=== PATIENT | male | born 1975 | race Caucasian/White ===

== ENCOUNTER 2020-07-22 14:49 | Emergency (ER) | payer OTHER, SELFPAY ==
[2020-07-22 14:53] VITALS: BP 176/99; PULSE 129; RESP 18; TEMP 37.5; O2SAT 98; BMI 34.2
--- NOTE | 2020-07-22 14:57 | XRR_ITS ---
PROCEDURE INFORMATION: Exam: XR Right Forearm Exam date and time: 07/22/2020 3:28 PM Age: 44 years old Clinical indication: Injury or trauma and condition or disease; Other: Not specified; Work related; Other: Arm fracture; Blunt trauma (contusions or hematomas); Arm, lower; Right; Injury date: 07/22/20 TECHNIQUE: Imaging protocol: XR Right forearm. Views: 2 views. COMPARISON: CR Elbow 3 views, RIGHT* [id number] 08/07/2018 5:52 PM FINDINGS: Bones/joints: Comminuted, displaced distal radial fracture without extension into the radiocarpal joint, lateral displacement of the distal fracture fragment. Minimally angulated and comminuted distal ulnar fracture in near anatomic alignment and position. No dislocation. Soft tissues: Soft tissue edema. XR/XR forearm RT 2V [id number] IMPRESSION: Comminuted, displaced distal radial fracture. Distal ulnar fracture.
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
[2020-07-22 15:00] VITALS: RESP 16
[2020-07-22] MEDS: ondansetron 2 mg/ML SDV 2 mL 4 MG IVP (15:00)
[2020-07-22] MEDS: morphine 4 mg/mL SDV 1 mL 6 MG IVP (15:00)
[2020-07-22 15:12] VITALS: RESP 15
[2020-07-22] MEDS: HYDROmorphone 1 mg/mL INJ 1 mL IVP ×2 (15:12→15:46)
--- NOTE | 2020-07-22 15:37 | DCPLANNER ---
manager online was asked to schedule a follow up appointment for patient with ortho. manager online called the ortho clinic, spoke with Pat, a follow up appointment was scheduled for Tuesday, July 23, 2020 at 8:[address] Falk. manager online gave patient the appointment information.
[2020-07-22 15:46] VITALS: RESP 16
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
[2020-07-22] MEDS: iohexol 300 mg/mL 100 mL Btl IV (16:35)
[2020-07-22 16:50] VITALS: BP 120/75; PULSE 60; RESP 14; O2SAT 98
--- NOTE | 2020-07-23 12:49 | DCPLANNER ---
Patient had an appointment scheduled for 07.23.20 with ortho - patient did attend appointment.
[2020-07-24 14:08] LABS: Coronavirus Lab Test PTC Positive
== END 2020-07-22 16:53 | disposition home or self-care (01) ==
PROVIDERS: Emergency Provider Family Medicine; PCP Family Medicine
DX: S52.331A Displaced oblique fracture of shaft of right radius, initial encounter for closed fracture (principal); S52.611A Displaced fracture of right ulna styloid process, initial encounter for closed fracture; Y35.91XA Legal intervention, means unspecified, law enforcement official injured, initial encounter; U07.1 COVID-19
CPT/HCPCS: 12345; 29125; 73090; 73201; 87635; 96374; 96375; 96376; 99282; 99283; J1170; J2270; J2405; Q9967

== ENCOUNTER 2020-07-23 11:37 | Day surgery (SDC) | payer OTHER, SELFPAY ==
[2020-07-23] VITALS (17 sets, daily range): BP systolic 144–199; BP diastolic 68–113; PULSE 108–134; RESP 14–32; TEMP 37–37.7; O2SAT 90–98; BMI 34.9
--- NOTE | 2020-07-23 | SCC_ITS ---
Procedure Done: ORIF Right radius non op tx of Right ulna 44.0 seconds of fluoroscopic guidance, for a cumulative dose of 0.78 mGy, was provided to Dr. Falk by the radiology department. C-arm images of the RIGHT wrist were saved for the patient's permanent record. [facility] [place]
--- NOTE | 2020-07-23 | XR_ITS ---
WS: [id number] Right wrist, 4 views C-arm fluoroscopy, 07/23/2020 Clinical Data: OR PICS Comparison: Right forearm, 07/22/2020. Findings: There is internal fixation of the comminuted distal right radial fracture with a ventral plate attach ed with multiple orthopedic screws. There are transverse screws at the midportion of the fracture sit e. No change in the distal right ulnar fracture is seen. XR/XR wrist RT 2V [id number] Impression: Internal fixation of comminuted right radial fracture.
[2020-07-23] MEDS: sodium chloride 0.9% 1,000 ML 30 ML IV (12:00)
[2020-07-23] MEDS: CELEcoxib 200 mg Capsule 400 MG PO (12:01)
[2020-07-23 12:38] LABS: Basophils % 0.3 %; Eosinophils # 0.1 10^3/uL (0.0-0.8); Eosinophils % 1.2 %; Hematocrit 39.8 % (42.0-52.0); Hemoglobin 13.3 g/dL (11.7-16.6); Lymphocytes # 2.5 10^3/uL (0.8-4.8); Lymphocytes % 33.8 %; Mean Corpuscular HGB Conc 33.4 g/dL (30.0-36.0); Mean Corpuscular Hemoglobin 27.3 pg (28.0-34.0); Mean Corpuscular Volume 81.7 fL (80-94); Mean Platelet Volume 11.9 fL (7.4-10.4); Monocytes % 13.7 %; Neutrophils % 50.7 %; Nucleated Red Blood Cells % 0 %; Platelet Count 191 10^3/cmm (130-400); Red Blood Count 4.87 10^6/uL (4.1-5.3); Red Cell Distribution Width 13.1 % (12.1-15.1); White Blood Count 7.3 10^3/uL (4.0-10.0)
[2020-07-23] MEDS: fentaNYL 50 mcg/mL INJ 2mL IVP ×4 (12:52→17:01)
--- NOTE | 2020-07-23 12:52 | W.PM.OPSUD ---
Surgery/Procedure H&P Update DATE OF PROCEDURE: July 23, 2020 DATE H&P PERFORMED: 07/23/20 H&P UPDATE INFORMATION: I have reviewed H&P completed within last 30 days, I have examined patient prior to procedure and No changes to prior documentation PREOP DIAGNOSIS: Next right radial shaft and ulnar fracture PLANNED PROCEDURE: Operation Date: 07/23/20 15:00 Proposed Procedures p ORIF shaft of radius fracture, right 62011 s52.301A(Right) - Brian Callahan DO
[2020-07-23 13:09] LABS: Alanine Aminotransferase 39 U/L (0-41); Alkaline Phosphatase 264 IU/L (40-130); Anion Gap 14.9 (5-19); Aspartate Amino Transferase 32 U/L (0-40); Blood Urea Nitrogen 11 mg/dL (6-20); Calcium 10.2 mg/dL (8.5-10.5); Carbon Dioxide 24 mmol/L (22-29); Chloride 100 mmol/L (98-107); Glomerular Filtration Rate 231.6 mL/min (90-130); Glucose 127 mg/dL (65-115); Osmolality Calculated 281 mOsm/kg (285-295); Potassium 3.9 mmol/L (3.5-5.1); Sodium 135 mmol/L (136-145); Total Bilirubin 1.4 mg/dL (0.15-1.2)
--- NOTE | 2020-07-23 13:26 | P.ANESASSM_ITS ---
Pre-Anesthetic Assessment Pre-Anesthetic Assessment: Height/Weight: Height 1.73 m Weight 104.326 kg Resp Pulse Ox 18 96 07/23/20 12:52 07/23/20 12:52 Preop Diagnosis: Next right radial shaft and ulnar fracture Proposed Procedure: Operation Date: 07/23/20 15:00 Proposed Procedures p ORIF shaft of radius fracture, right 39164 s52.301A(Right) - Brian Callahan, Familial anesthetic complications: none Was Beta Miguel taken within 24 hours: N/A Last intake: Intake Patient ate sausage and croissant at 0700 Last Liquid Date 07/23/20 Last Liquid Time 07:30 Last Solid Date 07/23/20 Last Solid Time 07:30 Social: Social History: No alcohol and No tobacco Exam: Pre-Anes Outpt Exam: alert, oriented x 3, clear to auscultation bilaterally and regular rate & rhythm Airway: Cervical ROM: WNL MP: 2 Dentition: Full Anesthetic Plan: ASA status: 1 Anesthesia: General Risk of > 500 ml blood loss (7ml/kg in children): No Meds/Allergies Current Medications: Current Medications Generic Name Dose Route Start Last Admin Trade Name Freq PRN Reason Stop Dose Admin Fentanyl 50 mcg 07/23/20 12:00 07/23/20 12:52 Sublimaze IVP 50 mcg Q10M PRN Administration Preop Pain PFSH Anesthesia PFSH: Social History (Updated 07/23/20 @ 09:34 by Mariluz Morales LPN) Smoking and tobacco status: never smoked Alcohol intake: current Alcohol intake frequency: few times a week Data Anesthesia CBC & Chem 7: 07/23/20 12:03 07/23/20 12:03 Other Labs: Laboratory Results - last 48 hr 07/23/20 07/23/20 12:03 12:03 WBC 7.3 RBC 4.87 Hgb 13.3 Hct 39.8 L MCV 81.7 MCH 27.3 L MCHC 33.4 RDW 13.1 Plt Count 191 MPV 11.9 H Neut % (Auto) 50.7 Lymph % (Auto) 33.8 [place] % (Auto) 13.7 Eos % (Auto) 1.2 Baso % (Auto) 0.3 Neut # (Auto) 3.70 Lymph # (Auto) 2.5 [place] # (Auto) 1.0 H Eos # (Auto) 0.1 Baso # (Auto) 0.0 Nucleated RBC % (auto) 0 Nucleated RBCs # 0.0 Sodium 135 L Potassium 3.9 Chloride 100 Carbon Dioxide 24 Anion Gap 14.9 BUN 11 Creatinine 0.4 L GFR Calculation 231.6 H Glucose 127 H Calculated Osmolality 281 L Calcium 10.2 Total Bilirubin 1.4 H AST 32 ALT 39 Alkaline Phosphatase 264 H Total Protein 7.0 Albumin 4.0 Globulin 3.0 Cardiac Studies: No Data to Display
[2020-07-23] MEDS: metoclopramide 5 mg/mL SDV 2 mL 10 MG IVP (14:27)
[2020-07-23] MEDS: famotidine 20 mg/2 mL INJ IVP (14:27)
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
[2020-07-23] MEDS: morphine 4 mg/mL SDV 1 mL 2 MG IVP ×2 (17:15→17:17)
[2020-07-23] MEDS: labetalol 5 mg/mL SDV 20mL IVP ×2 (17:22→17:30)
--- NOTE | 2020-07-23 19:00 | ANE.PACU2 ---
Inpatient post-anesthesia follow up: Airway intact: Yes Vital signs: Temperature 100 F Pulse Rate 123 Respiratory Rate 18 Blood Pressure 157/73 Pulse Oximetry 95 Oxygen Delivery Me thod Room Air Oxygen Flow Rate 3 Fraction of Inspir ed Oxygen Hydration adequate: Yes Nausea and vomiting: No Pain level: 1 Mental status: Baseline
== END 2020-07-23 19:07 | disposition home or self-care (01) ==
PROVIDERS: Specialist; PCP Family Medicine; Visit Provider Orthopaedic Surgery
PROC: (CPT 25575; principal; 2020-07-23 15:00)
DX: S52.301A Unspecified fracture of shaft of right radius, initial encounter for closed fracture (principal); S52.201A Unspecified fracture of shaft of right ulna, initial encounter for closed fracture; Y04.2XXA Assault by strike against or bumped into by another person, initial encounter; Y99.0 Civilian activity done for income or pay
CPT/HCPCS: 25575; 12345; 73100; 76000; 80053; 85025; 88304; 96374; 96375; C1713; J0131; J0690; J1100; J1170; J2270; J2405; J2704; J2710; J2765; J3010; J3490; J7030

== ENCOUNTER 2020-08-07 10:49 | Outpatient (CLI) | payer OTHER, SELFPAY | END 2020-08-07 10:50 | disposition home or self-care (01) | LOC: SPT 10:50 | PROVIDERS: PCP Family Medicine; Visit Provider Orthopaedic Surgery | DX: Z46.89 Encounter for fitting and adjustment of other specified devices (principal); S52.331D Displaced oblique fracture of shaft of right radius, subsequent encounter for closed fracture with routine healing; X58.XXXD Exposure to other specified factors, subsequent encounter | CPT/HCPCS: 97760; L3908 ==

== ENCOUNTER → 2020-09-04 08:12 | Outpatient (BNVA) | payer OTHER, SELFPAY | PROVIDERS: PCP Family Medicine; Visit Provider Orthopaedic Surgery | DX: Z48.89 Encounter for other specified surgical aftercare (principal); S52.691A Other fracture of lower end of right ulna, initial encounter for closed fracture | CPT/HCPCS: 73090 ==

== ENCOUNTER → 2020-10-16 07:59 | Outpatient (BNVA) | payer OTHER, SELFPAY | PROVIDERS: PCP Family Medicine; Visit Provider Orthopaedic Surgery | DX: Z48.89 Encounter for other specified surgical aftercare (principal); S52.691A Other fracture of lower end of right ulna, initial encounter for closed fracture; X58.XXXA Exposure to other specified factors, initial encounter | CPT/HCPCS: 73090 ==

== ENCOUNTER → 2020-12-04 14:20 | Outpatient (BNVA) | payer OTHER, SELFPAY | PROVIDERS: PCP Family Medicine; Visit Provider Orthopaedic Surgery | DX: S52.691A Other fracture of lower end of right ulna, initial encounter for closed fracture (principal); X58.XXXA Exposure to other specified factors, initial encounter | CPT/HCPCS: 73090 ==

== ENCOUNTER 2021-02-10 07:48 | Outpatient (CLI) | payer OTHER, SELFPAY ==
--- NOTE | 2021-02-10 07:58 | MR_ITS ---
WS: [id number] INDICATION: Tendon rupture right thumb TECHNIQUE: MR of the right wrist gadolinium enhancement. Coronal T1, PD, STIR, coronal 3-D FSPGR, axi al PD, axial T2, sagittal T1. FINDINGS: Prior postoperative changes plate and screw fixation radial shaft. Susceptibility artifact degrades some images. Palpable marker overlying the head of the first metacarpal. Small amount of deg enerative edema involving the head of the first metacarpal with hypertrophic changes. Extensor pollicis longus and extensor pollicis brevis normal in appearance. Abductor pollicis longus and brevis are normal in appearance. No acute fractures. Normal scaphoid and lunate. Normal radiocarpal joint. Normal distal radial ulnar joint. Normal carpal tunnel. MR/MR wrist RT wo con* [id number] IMPRESSION: 1. Abductor and extensor pollicis tendons are normal in appearance. 2. Small amount of degenerative edema involving the head of the first metacarp al with slight hypertrophic spurring. 3. Normal scaphoid and lunate. Normal radiocarpal joint and distal radial ulna r joint. 4. Prior postoperative changes plate and screw fixation distal radius. 5. Normal carpal tunnel.
== END 2021-02-10 07:49 | disposition home or self-care (01) ==
LOC: RADWPI 07:50
PROVIDERS: PCP Family Medicine; Visit Provider Orthopaedic Surgery
DX: Z48.89 Encounter for other specified surgical aftercare (principal)
CPT/HCPCS: 73221

== ENCOUNTER 2021-06-26 07:28 | Inpatient (IN) | payer OTHER, SELFPAY ==
[2021-06-26] VITALS (42 sets, daily range): BP systolic 109–209; BP diastolic 69–135; PULSE 86–200; RESP 14–30; TEMP 36.8–36.9; O2SAT 90–96; BMI 34.9
--- NOTE | 2021-06-26 07:39 | ECG_ITS ---
[facility] Test Date: 2021-06-26 Pat Name: Lukas Calloway Department: Room: Gender: Male Phys Asst: : 1975 Requested By: David Butcher Order Number: [id number] Reading MD: CAROLINA JEFFERSON Measurements Intervals [place] Rate: 188 P: MA: QRS: 40 QRSD: 100 T: 52 QT: 224 QTc: 397 Interpretive Statements ATRIAL FIBRILLATION WITH RAPID VENTRICULAR RESPONSE NONSPECIFIC ST & T-WAVE ABNORMALITY No previous ECG available for comparison Electronically Signed On 06-26-2021 15:41:05 CDT by CAROLINA JEFFERSON [id number]
--- NOTE | 2021-06-26 07:39 | XRR_ITS ---
PROCEDURE INFORMATION: Exam: XR Chest Exam date and time: 06/26/2021 7:39 AM Age: 45 years old Clinical indication: Cough and dyspnea; Patient HX: Chest pain, SOB off and on for 1 week; Additional info: Dyspnea/cough TECHNIQUE: Imaging protocol: XR of the chest. Views: 1 view. COMPARISON: No relevant prior studies available. FINDINGS: Lungs: Poor inspiration. Decreased lung volumes. Bilateral central bronchial wall thickening and haziness. Increase in the interstitial markings in both lung bases. Cannot confirm septal line formation. No fissural thickening. No focal peripheral lung consolidation, air bronchogram formation, or silhouette sign. Pleural spaces: No pleural effusion or pneumothorax. Heart/Mediastinum: The cardiac silhouette is not enlarged. The mediastinal contours are normal. Vasculature: The aorta is atherosclerotic. Bones/joints: No acute osseous abnormality XR/XR chest 1V portable [id number] IMPRESSION: Findings which could be due to dependent interstitial pulmonary edema versus interstitial pneumonitis.
--- NOTE | 2021-06-26 07:40 | W.ED.ARRPALP ---
HPI - Arrhythmia/Palpitations General: Chief Complaint: Shortness of Breath/Dyspnea Stated Complaint: SOB, High Blood Pressure, sent from Clinic Time Seen by Provider: 06/26/21 07:32 History of Present Illness: HPI narrative: 45-year-old male presents emergency room with complaint of rapid heart rate and shortness of breath. He states he has had this for extended period of time intermittently he even states for years this has been going on more recently last several days he has had severe shortness of breath and rapid heart rate. He was seen at local clinic today and advised to go to the emergency room. He has no known history of coronary artery disease or diabetes. He has no known history of arrhythmias. Is not currently having any chest pain. He is noticeably short of breath even with mild conversation. MD complaint: rapid heart beat and palpitations Onset (ago): year(s) Duration: intermittent Severity: severe Context: occurred during rest Associated symptoms: Reports short of breath; Deny anxiety, cough, diaphoresis, muscle cramps, nausea, paresthesias, pre-syncope, sense of impending doom, syncope or vomiting Review of Systems Const: Denies: diaphoresis ENMT: Denies: throat pain, ear or mastoid pain, nasal discharge or nasal congestion Card: Denies: syncope or pre-syncope Resp: Denies: dyspnea, productive cough or non-productive cough GI: Denies: nausea or vomiting : Denies: flank pain, dysuria, urinary frequency or urinary urgency Musc: Denies: muscle cramps Skin/Breast: Denies: rash or pruritus Psych: Denies: anxiety PFS ED PFSH: Family History (Updated 06/26/21 @ 10:57 by Judah Wesley MD) Other Diabetes Social History Smoking and tobacco status: never smoked Alcohol intake: current Alcohol intake frequency: few times a week Physical Exam Const: COMMON NORMALS: no acute distress GENERAL APPEARANCE: cooperative and comfortable ORIENTATION/CONSCIOUSNESS: Yes awake, Yes oriented to person, Yes oriented to place and Yes oriented to time HENMT: COMMON NORMALS: normocephalic, atraumatic and hearing grossly normal bilaterally HEAD & SCALP: normocephalic and atraumatic Resp: COMMON NORMALS: normal respiratory effort, No retractions, No use of accessory muscles and clear to auscultation bilaterally AUSCULTATION: clear to auscultation bilaterally Cardio: RATE: tachycardic RHYTHM: abnormal rhythm irregularly irregular GI: COMMON NORMALS: Soft to palpation and No hepatosplenomegaly present AUSCULTATION: Yes normoactive bowel sounds PALPATION: Yes Soft to palpation, No Tenderness to palpation present (GI), No Guarding due to palpation present (GI) and Yes No hepatosplenomegaly present Extremity: COMMON NORMALS: normal to inspection, capillary refill normal, no clubbing, cyanosis or edema, no calf tenderness and no pedal edema Neuro: SENSORIUM/ORIENTATION: Yes oriented to person, Yes oriented to place and Yes oriented to time Skin: COMMON NORMALS: no rashes or lesions noted GENERAL SKIN EXAM: no rashes or lesions noted Course Vital Signs: Vital signs: Vital Signs Temperature 98.2 F 06/26/21 07:43 Pulse Rate 105 H 06/26/21 13:13 Respiratory Rate 20 H 06/26/21 13:13 Blood Pressure 110/77 06/26/21 13:13 Pulse Oximetry 93 06/26/21 13:13 MDM - Arrhythmia/Palpitations MDM Narrative: Medical decision making narrative: Patient in A. fib with rapid ventricular response with mild congestive heart failure. He is actually been in this it sounds like for him almost a full week. Initially given Cardizem which she did respond to somewhat but only got down to 150s and remained relatively symptomatic. We switch him to esmolol and gave him loading dose and a drip which we titrated up and managed to get good control however he remained in A. fib. Also gave him Lasix. Discussed with Dr. Johnson will admit for new onset A. fib and appropriate work-up and rate control. Patient much improved shortness of breath is significantly improved. Lab Data: Labs: Lab Results 06/26/21 06/26/21 06/26/21 07:56 07:56 07:56 WBC 8.5 10^3/uL 10^3/ uL (4.0-10.0) RBC 5.03 10^6/uL 10^6 /uL (4.1-5.3) Hgb 13.9 g/dL g/dL (11.7-16.6) Hct 42.0 % % (42.0-52.0) MCV 83.5 fl fl (80-94) MCH 27.6 pg L pg (28.0-34.0) MCHC 33.1 g/dL g/dL (30.0-36.0) RDW 14.3 % % (12.1-15.1) Plt Count 166 10^3/cmm 10^3 /cmm (130-400) MPV 12.6 fL H fL (7.4-10.4) Neut % (Auto) 51.2 % % Lymph % (Auto) 32.4 % % [place] % (Auto) 13.3 % % Eos % (Auto) 2.5 % % Baso % (Auto) 0.4 % % Neut # (Auto) 4.35 10^3/uL 10^3 /uL (1.8-7.7) Lymph # (Auto) 2.8 10^3/uL 10^3/ uL (0.8-4.8) [place] # (Auto) 1.1 10^3/uL H 10^ 3/uL (0.2-0.9) Eos # (Auto) 0.2 10^3/uL 10^3/ uL (0.0-0.8) Baso # (Auto) 0.0 10^3/uL 10^3/ uL (0.0-0.1) Nucleated RBC % (a uto) 0 % % Nucleated RBCs # 0.0 /100WBC /100W BC Sodium 139 mmol/L mmol/L (136-145) Potassium 4.3 mmol/L mmol/L (3.5-5.1) Chloride 102 mmol/L mmol/L (98-107) Carbon Dioxide 24 mmol/L mmol/L (22-29) Anion Gap 17.3 (5-19) BUN 9 mg/dL mg/dL (6-20) Creatinine 0.3 mg/dL L mg/dL (0.7-1.2) GFR Calculation 321.4 mL/min H mL /min (90-130) Glucose 136 mg/dL H mg/dL (65-115) Calculated Osmolal ity 289 mOsm/kg mOsm/ kg (285-295) Calcium 9.6 mg/dL mg/dL (8.5-10.5) Magnesium Total Bilirubin 2.2 mg/dL H mg/dL (0.15-1.2) AST 46 U/L H U/L (0-40) ALT 36 U/L U/L (0-41) Alkaline Phosphata se 322 IU/L H IU/L (40-130) Troponin T Baselin e 55 ng/L H ng/L (0-15) Troponin T 120 Min [place] Troponin T NT-Pro-B Natriuret Pep 1195 pg/mL H pg/m L (0-125) Total Protein 7.2 g/dL g/dL (6.6-8.7) Albumin 3.9 g/dL g/dL (3.5-5.2) Globulin 3.3 g/dL g/dL (1.3-4.6) TSH Hepatitis A IgM Ab Hep Bs Antigen Hep B Core IgM Ab Hepatitis C Antibo dy 06/26/21 06/26/21 06/26/21 07:56 07:56 10:45 WBC RBC Hgb Hct MCV MCH MCHC RDW Plt Count MPV Neut % (Auto) Lymph % (Auto) [place] % (Auto) Eos % (Auto) Baso % (Auto) Neut # (Auto) Lymph # (Auto) [place] # (Auto) Eos # (Auto) Baso # (Auto) Nucleated RBC % (a uto) Nucleated RBCs # Sodium Potassium Chloride Carbon Dioxide Anion Gap BUN Creatinine GFR Calculation Glucose Calculated Osmolal ity Calcium Magnesium 1.9 mg/dL mg/dL (1.7-2.3) Total Bilirubin AST ALT Alkaline Phosphata se Troponin T Baselin e Troponin T 120 Min [place] 47.86 ng/L H ng/L (0-15) [place] Troponin T -7.14 ABS# L ABS# (0-10) NT-Pro-B Natriuret Pep Total Protein Albumin Globulin TSH 0.01 uIU/mL L uIU /mL (0.27-4.20) Hepatitis A IgM Ab Non-reactive (Nonreactive) Hep Bs Antigen Non-reactive (Nonreactive) Hep B Core IgM Ab Non-reactive (Nonreactive) Hepatitis C Antibo dy Non-reactive (Nonreactive) Discharge Plan Discharge Patient Disposition: Admitted As Inpatient Clinical Impression: Atrial fibrillation Condition: Stable Coding Level of Care Code ED [facility] Director for g Fwd Exam Detailed
[2021-06-26 08:18] LABS: Basophils % 0.4 %; Eosinophils # 0.2 10^3/uL (0.0-0.8); Eosinophils % 2.5 %; Hemoglobin 13.9 g/dL (11.7-16.6); Lymphocytes # 2.8 10^3/uL (0.8-4.8); Lymphocytes % 32.4 %; Mean Corpuscular HGB Conc 33.1 g/dL (30.0-36.0); Mean Corpuscular Hemoglobin 27.6 pg (28.0-34.0); Mean Corpuscular Volume 83.5 fl (80-94); Mean Platelet Volume 12.6 fL (7.4-10.4); Monocytes # 1.1 10^3/uL (0.2-0.9); Monocytes % 13.3 %; Neutrophils # 4.35 10^3/uL (1.8-7.7); Neutrophils % 51.2 %; Nucleated Red Blood Cells % 0 %; Platelet Count 166 10^3/cmm (130-400); Red Blood Count 5.03 10^6/uL (4.1-5.3); Red Cell Distribution Width 14.3 % (12.1-15.1); White Blood Count 8.5 10^3/uL (4.0-10.0)
[2021-06-26] MEDS: ondansetron 2 mg/ML SDV 2 mL 4 MG IVP (08:21)
[2021-06-26] MEDS: FUROsemide 10 mg/mL SDV 4mL 40 MG IVP (08:21)
[2021-06-26 08:25] LABS: Troponin(5th) Baseline 55 ng/L (0-15)
[2021-06-26 08:54] LABS: Alanine Aminotransferase 36 U/L (0-41); Albumin Level 3.9 g/dL (3.5-5.2); Alkaline Phosphatase 322 IU/L (40-130); Aspartate Amino Transferase 46 U/L (0-40); Blood Urea Nitrogen 9 mg/dL (6-20); Calcium 9.6 mg/dL (8.5-10.5); Carbon Dioxide 24 mmol/L (22-29); Chloride 102 mmol/L (98-107); Globulin 3.3 g/dL (1.3-4.6); Glomerular Filtration Rate 321.4 mL/min (90-130); Glucose 136 mg/dL (65-115); NT Pro B Type Natriuretic Pept 1195 pg/mL (0-125); Osmolality Calculated 289 mOsm/kg (285-295); Sodium 139 mmol/L (136-145); Total Bilirubin 2.2 mg/dL (0.15-1.2); Total Protein 7.2 g/dL (6.6-8.7)
[2021-06-26] MEDS: esmolol drip 2,500 MG/250 ML PREMIX 31.3 MG IV (08:54)
[2021-06-26 09:03] LABS: Anion Gap 17.3 (5-19); Potassium 4.3 mmol/L (3.5-5.1)
--- NOTE | 2021-06-26 09:09 | PC.PHAR ---
pt states he takes no rx medications-pt states he gets a allergy medication from [facility] states the bottle is green and white and 10mgs he thinks pt thought the name was fariba but was unsure fariba comes in 30,60,180mgs [facility] has zyrtec in 10mg in a green and white bottle-pt states he hasnt taken the medications entered much this week
[2021-06-26] MEDS: metoprolol succinate ER (24 HR) 50 mg Tablet PO (09:28)
--- NOTE | 2021-06-26 09:39 | ECG_ITS ---
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
--- NOTE | 2021-06-26 10:54 | P.HP_ITS ---
Providers/Chief Complaint Chief Complaint: SOB, High Blood Pressure, sent from Clinic History of Present Illness Lukas Calloway is a 45 year old male who presents to the emergency department with 1 week history of palpitations. This culminated in chest discomfort, shortness of breath, nausea for which she sought help at urgent care today and was directed to the emergency department when heart rate was noted to be elevated. He reports he has had intermittent episodes of fast heart rate in the past but no diagnosis. He does not regularly follow-up with a physician. He denies any past history of exertional chest discomfort. While in the emergency department he received Cardizem, and ultimately is on as an esmolol drip. With this he reports all of his symptomatology has gone away with the heart rate decreased. Reports past history of Covid in 2019. He has also been vaccinated, with last immunization May 22 with Moderna. Review of Systems General: Reports: 10 or more systems reviewed and unremarkable except in HPI and below Const: Denies: fever(s) or chills Eyes: Denies: change in vision ENMT: Denies: throat pain Card: Reports: chest pain and palpitations Resp: Reports: dyspnea GI: Reports: nausea; Denies: abdominal pain or vomiting : Denies: flank pain Musc: Denies: neck pain Skin/Breast: Denies: rash Neuro: Denies: headache(s) Psych: Denies: anxiety or depression Endo: Denies: polyuria Vladimir/Lymph: Denies: easy bruising All/Imm: Denies: urticaria Medications/Allergies Home Medications Medication Instructions Recorded Confirmed Last Taken Type ondansetron HCl [Zofran] 4 mg PO Q6H PRN #15 tab 07/23/20 06/26/21 Unknown Rx Vitamin D3 1 cap PO DAILY 06/26/21 06/26/21 Unknown History ascorbic acid (vitamin C) [Vitamin 1,000 mg PO DAILY 06/26/21 06/26/21 Unknown History C] cetirizine 10 mg PO DAILY 06/26/21 06/26/21 Unknown History magnesium 1 tab PO DAILY 06/26/21 06/26/21 Unknown History multivitamin 1 tab PO DAILY 06/26/21 06/26/21 Unknown History potassium gluconate 99 mg PO DAILY 06/26/21 06/26/21 Unknown History zinc 1 cap PO DAILY 06/26/21 06/26/21 Unknown History Allergies Allergy/AdvReac Type Severity Reaction Status Date / Time No Known Allergies Allergy Verified 06/26/21 09:10 PFSH Acute PFSH: Family History (Updated 06/26/21 @ 10:57 by Judah Wesley MD) Other Diabetes Social History Smoking and tobacco status: never smoked Alcohol intake: current Alcohol intake frequency: few times a week Supplemental PFSH Information: History of right arm fracture and repair Vitals/I&O/Wt Last Vital Signs Temp 98.2 F 06/26/21 07:43 Pulse 102 H 06/26/21 10:42 Resp 21 H 06/26/21 10:42 BP 110/75 06/26/21 10:42 Pulse Ox 94 06/26/21 10:42 06/25/21 06/26/21 06/26/21 22:59 06:59 14:59 Intake Total 44.364 / 44.364 Balance 44.364 / 44.364 Weight last 48 hrs Weight 104.326 kg Physical Exam Narrative: EXAM NARRATIVE: General exam is a white male, no current distress HEENT: Atraumatic and normocephalic. Oropharynx clear. Neck is supple no lymphadenopathy or thyromegaly Cardiovascular irregular, irregular with a 2/6 systolic murmur Lungs clear no wheezing or crackles Abdomen is soft with positive bowel sounds. No obvious organomegaly exam is deferred Extremities no cyanosis clubbing or edema, cap refill brisk Skin no rash Neuro no obvious focal deficits. Data : 06/26/21 07:56 06/26/21 07:56 Other data: Alk phos elevated at 322. BNP 1195 Total bilirubin 2.2 AST 46, ALT normal Troponin 55 at baseline Chest x-ray demonstrates CHF EKG demonstrated atrial fibrillation with rapid ventricular rate, normal axis, nonspecific ST-T wave changes A&P Assessment and plan (1) Atrial fibrillation: Currently on an esmolol drip Convert to metoprolol 50 mg twice daily Consider adding Cardizem p.o. if heart rate still high, patient does not spontaneously convert and blood pressure tolerates Currently full dose anticoagulation with Lovenox Check TSH, magnesium level Check echocardiogram Status: Acute (2) CHF (congestive heart failure): Received Lasix IV in the emergency department Check echocardiogram Suspect this is all rate related. Status: Acute (3) Transaminitis: Check hepatitis panel Likely elevated secondary to liver congestion from congestive heart failure but will recheck enzymes in the morning. Status: Acute Additional A&P Information Full code Lovenox will suffice for DVT prophylaxis Attestations Medical Necessity Statement*: Will need greater than 2 midnight stay for evaluation and treatment of atrial fibrillation rapid ventricular rate, new onset associate with congestive heart failure. Coding Level of Care Code Acute Business Analyst Consultant for Yudy Myrick Diagnoses Atrial fibrillation I48.91 CHF (congestive heart failure) I50.9 Transaminitis R74.01
--- NOTE | 2021-06-26 11:00 | USCV_ITS ---
Lukas Calloway Age: 45 Gender: M : 1975 Exam Date: 06/26/2021 12:31 Ordering Phys: Judah Wesley MD Technologist: [place] [facility] [place]IB BP: 113 / 79 HR: 96 Rhythm: Sinus Technical Quality: Adequate MEASUREMENTS (Male / Female) Normal Values 2D ECHO LVOT Diameter 2.1 cm LA Diameter 4.2 cm LA Width 4.3 cm LA Height 5.3 cm RA Width 4.2 cm RA Height 5.5 cm Aorta at Sinotubular Diameter 2.7 cm M-MODE LV Diastolic Diameter MM 4.8 cm 4.2 - 5.9 / 3.9 - 5.3 cm LV Systolic Diameter MM 3.8 cm LV Ejection Fraction MM Teich 45.2 % IVS Diastolic Thickness MM 1.4 cm 0.6 - 1.0 / 0.6 - 0.9 cm IVS Systolic Thickness MM 1.7 cm LVPW Diastolic Thickness MM 1.3 cm 0.6 - 1.0 / 0.6 - 0.9 cm LVPW Systolic Thickness MM 1.3 cm RV Diastolic Diameter MM 2.2 cm DOPPLER AV Peak Velocity 114.0 cm/s LVOT Peak Velocity 92.0 cm/s AV Area Cont Eq vti 3.0 cm squared AV Area Cont Eq pk 2.7 cm squared MV Area PHT 5.0 cm squared Mitral E to A Ratio 4.6 MV E' Velocity 90.0 cm/s TR Peak Velocity 125.4 cm/s TR Peak Gradient 6.3 mmHg Right Atrial Pressure 3.0 mmHg Pulmonary Artery Systolic Pressu 9.3 mmHg FINDINGS Left Ventricle Technically limited quality echocardiogram because of poor ultrasonic windows. LV systolic function is mildly reduced with EF of 40 to 45%. Mild global hypokinesis is seen. Diastolic function is indeterminate because of atrial fibrillation Right Ventricle Not well-visualized Right Atrium Normal in size Left Atrium Normal in size Mitral Valve Grossly normal. Mild mitral regurgitation is seen Aortic Valve Grossly normal. No significant stenosis is seen. Tricuspid Valve Not well-visualized Pulmonic Valve Not well-visualized. Mild pulmonic regurgitation is seen Pericardium Grossly normal Aorta Grossly normal CONCLUSIONS Technically limited quality echocardiogram because of poor ultrasonic windows. LV systolic function is mildly reduced with EF of 40 to 45%. Mild global hypokinesis is seen. Diastolic function is indeterminate because of atrial fibrillation. Valvular structures are not well-visualized however no gross abnormalities. No comparison studies are available. Efren Massey MD (Electronically Signed) Final Date: 26 June 2021 22:12 S
[2021-06-26] MEDS: esmolol drip 2,500 MG/250 ML PREMIX 125.19 MG IV ×3 (11:05→15:10)
[2021-06-26] MEDS: enoxaparin 100 mg/mL Syringe SUBCUT ×2 (11:05→22:35)
[2021-06-26 11:34] LABS: Magnesium 1.9 mg/dL (1.7-2.3); Thyroid Stimulating Hormone 0.01 uIU/mL (0.27-4.20)
[2021-06-26 11:39] LABS: Troponin 5 2HR 47.86 ng/L (0-15)
[2021-06-26 11:44] LABS: Troponin 5 2HR Delta -7.14 ABS# (0-10)
[2021-06-26 12:44] LABS: Hepatitis A Antibody IgM Non-Reactive (Nonreactive); Hepatitis B Core IgM Non-Reactive (Nonreactive); Hepatitis B Surface Antigen Non-Reactive (Nonreactive); Hepatitis C Virus Antibody Non-Reactive (Nonreactive)
[2021-06-26] MEDS: perflutren protein-a microsphr 0.22 mg/mL SDV 3 mL IV (12:51)
--- NOTE | 2021-06-26 13:39 | ECG_ITS ---
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 Measurements Intervals [place] Rate: 105 P: [place]: QRS: 55 QRSD: 97 T: 60 QT: 365 QTc: 483 Interpretive Statements ATRIAL FIBRILLATION WITH RAPID VENTRICULAR RESPONSE Compared to ECG 06/26/2021 09:43:23 No significant changes Electronically Signed On 06-27-2021 21:14:45 CDT by Efren Massey M.D. [id number]
[2021-06-26 14:41] LABS: Troponin 5 6HR 43.96 ng/L (0-15)
--- NOTE | 2021-06-26 15:11 | PC.CHAP ---
Pastoral Care Encounter/Spiritual Assessment Type of Contact [] Declined auto claims adjuster visit [] Patient/Family/Request visit [] Outpatient visit [] Follow-up visit [] Physician referral [] Code/Alert [] Routine visit [] Staff referral [] Actively dying [] Patient sleeping [] Family support [] [] Out of room [] Palliative care [] [] Receiving care in room [] Pre-surgical visit [] Trauma [] Long length of stay [xx] ICU visit [] Other: Relational/Emotional Strength [] Patient feels connected with others/family/visitors/staff [] Distress [] Loneliness/isolation [] Abandonment Spirituality of Patient [] Person of Taylor [] Attends Hinduism of their Taylor [] Believes in Prayer [] Reads Bible or Moravian materials [] There are Spiritual issues to be addressed Line Worker Interventions [xx] Prayer [] Active listening [] Non-anxious presence [] Spiritual/emotional support [] Crisis/trauma care [] Spiritual counseling [] Bereavement support [] Provided bereavement packet [] Provided Bible/devotional materials [] Provided toy/stuffed animal, coloring book to patient or family member [] Provided Communion [] Anointing/[place] [] Salvation [] Completed spiritual assessment [] Other: Impact on Illness or Injury [] Angry [] Fearful [] Anxious [] Often cries [] Exhaustion [] Unable to work [] Unable to attend sabianism [] Unable to walk/stand [] Unable to read [] Unable to drive [] Unable to eat/drink [] Unable to sleep [] Unable to be with family [] Patient intubated [] Other: Summary Line Worker not allowed in room. Line Worker prayed outside room. Time spent with patient 2 minutes
[2021-06-26] MEDS: digoxin 250 mcg/ml INJ 2 mL 500 MCG IVP (15:34)
--- NOTE | 2021-06-26 18:44 | PC.NURSE ---
Admit Note Patient admitted to ICU 5 from ER via stretcher. Covering service notified. Patient presents with ring, electronic watch, shoes, clothing, and phone. took electronic watch home. Orders reviewed & will continue to monitor. Report taken form Claudine ac ER. escorted to room. Patient and/or congressional representative oriented to environment, equipment, and informed of the following as found in the admission booklet: patient rights & responsibilities, visitor policy, hand and respiratory hygiene practice.
--- NOTE | 2021-06-26 19:14 | PC.NURSE ---
Shift Note Frequent safety and comfort rounds continue. Orders and/or nursing care completed as indicated. Patient monitored for response to intervention and treatment(s). Patient turns self and watches television. took shoes home with her.
[2021-06-26] MEDS: esmolol drip 2,500 MG/250 ML PREMIX 62.6 MG IV (20:09)
[2021-06-26] MEDS: metoprolol tartrate 50 mg Tablet PO (20:51)
[2021-06-27] VITALS (55 sets, daily range): BP systolic 111–168; BP diastolic 65–112; PULSE 86–147; RESP 12–31; TEMP 36.6–37.6; O2SAT 87–96
--- NOTE | 2021-06-27 | USR_ITS ---
PROCEDURE INFORMATION: Exam: US Soft Tissue Head and Neck, Soft Tissue Exam date and time: 06/27/2021 12:00 AM Age: 45 years old Clinical indication: Abnormal findings; Abnormal thyroid lab test; Additional info: Additional images of thyroid US, Dr bradley called and wants additional images with color/doppler of^thyroid^(original exam has already been read) TECHNIQUE: Imaging protocol: Real-time ultrasound scan of the head and neck with image documentation. Exam focused on the soft tissue in the region of clinical concern. COMPARISON: No relevant prior studies available. FINDINGS: Lymph nodes: The survey cervical nodes have a normal appearance with retained fatty hilum and reniform shape. Soft tissues: Unremarkable. No fluid collections. Other findings: Additional color Doppler images of the thyroid are provided for interpretation. Qualitatively, the thyroid vascularity on color Doppler images appears mildly hyperemic throughout the thyroid. US/US soft tissue head neck [id number] IMPRESSION: 1. Qualitatively, the thyroid vascularity appears mildly hyperemic throughout the thyroid. Similar differential considerations of a nonspecific thyroiditis or possibly grave's disease. 2. No evidence of cervical adenopathy.
[2021-06-27] MEDS: esmolol drip 2,500 MG/250 ML PREMIX 31.3 MG IV (00:28)
[2021-06-27 05:27] LABS: Basophils % 0.3 %; Eosinophils # 0.2 10^3/uL (0.0-0.8); Eosinophils % 2.6 %; Hematocrit 40.3 % (42.0-52.0); Hemoglobin 12.7 g/dL (11.7-16.6); Lymphocytes % 37.9 %; Mean Corpuscular HGB Conc 31.5 g/dL (30.0-36.0); Mean Corpuscular Hemoglobin 27.5 pg (28.0-34.0); Mean Corpuscular Volume 87.4 fl (80-94); Mean Platelet Volume 12.2 fL (7.4-10.4); Monocytes # 1.1 10^3/uL (0.2-0.9); Neutrophils # 3.51 10^3/uL (1.8-7.7); Neutrophils % 44.9 %; Nucleated Red Blood Cells % 0 %; Platelet Count 139 10^3/cmm (130-400); Red Blood Count 4.61 10^6/uL (4.1-5.3); Red Cell Distribution Width 14.5 % (12.1-15.1); White Blood Count 7.8 10^3/uL (4.0-10.0)
[2021-06-27 05:56] LABS: Alanine Aminotransferase 31 U/L (0-41); Albumin Level 3.3 g/dL (3.5-5.2); Alkaline Phosphatase 253 IU/L (40-130); Anion Gap 15.3 (5-19); Aspartate Amino Transferase 41 U/L (0-40); Blood Urea Nitrogen 14 mg/dL (6-20); Calcium 9.1 mg/dL (8.5-10.5); Carbon Dioxide 22 mmol/L (22-29); Chloride 102 mmol/L (98-107); Glomerular Filtration Rate 321.4 mL/min (90-130); Glucose 117 mg/dL (65-115); Osmolality Calculated 282 mOsm/kg (285-295); Potassium 4.3 mmol/L (3.5-5.1); Sodium 135 mmol/L (136-145); Total Bilirubin 1.8 mg/dL (0.15-1.2); Total Protein 6.3 g/dL (6.6-8.7)
[2021-06-27] MEDS: metoprolol tartrate 50 mg Tablet PO ×2 (09:09→10:53)
[2021-06-27] MEDS: FUROsemide 40 mg Tablet PO (10:52)
[2021-06-27] MEDS: apixaban 5 mg Tablet PO ×2 (10:53→21:11)
[2021-06-27 11:34] LABS: Chol HDL Ratio 3.75 mg/dL (1.0-5.00); Cholesterol 75 mg/dL (0-200); HDL Cholesterol 20 mg/dL (60-100); LDL Cholesterol Calculated 41 mg/dL (50-129); Triglycerides 71 mg/dL (0-150); VLDL Cholestrol Calculation 14 mg/dL (0-30)
[2021-06-27 11:58] LABS: Iron 75 ug/dL (59-158)
[2021-06-27 12:03] LABS: Estmated Average Glucose 131; Hemoglobin A1C 6.2 % (4.0-6.0)
[2021-06-27 12:19] LABS: Free T4 Free Thyroxine > 7.77 ng/dL (0.82-1.77)
[2021-06-27 12:30] LABS: Percent Saturation 36.7 % (20-50); Total Iron Binding Capacity 204 mcg/dl; Unsaturated Iron Binding 129 ug/dL (112-347)
--- NOTE | 2021-06-27 12:30 | PC.NURSE ---
pt arrived to the floor from ICU, pt is stable, vital signs are WNL, pt oriented to room and call cabrera. Nurse will continue to monitor
--- NOTE | 2021-06-27 12:31 | PC.NURSE ---
Transfer Note Patient transferred to CSU 105 from ICU 5 via wheelchair. Faxed report to CSU at 1203. Gave report to Tayla at 1221. Patient oriented to environment and equipment. Covering service notified. Significant other was present at transfer and went with the patient to new room.
--- NOTE | 2021-06-27 13:30 | USR_ITS ---
PROCEDURE INFORMATION: Exam: US Soft Tissue Head and Neck, Thyroid Exam date and time: 06/27/2021 1:30 PM Age: 45 years old Clinical indication: Abnormal findings; Abnormal thyroid lab test; Additional info: Hyperthyroidism, please look for doppler and blood flow to thyroid gland TECHNIQUE: Imaging protocol: Real-time ultrasound scan of the neck with image documentation. Exam focused on the thyroid. COMPARISON: No relevant prior studies available. FINDINGS: Right thyroid lobe: Heterogeneous echogenicity and lobulated appearance of the right thyroid lobe which also appears enlarged measuring 5.9 x 3.3 by 2.0 cm. Tiny echogenic foci noted measuring 2 mm, no evident nodules. No evident hyperemia on color Doppler imaging. Left thyroid lobe: Heterogeneous echogenicity and lobulated appearance of the left thyroid lobe which also appears enlarged measuring 5.8 x 3.2 x 2.1 cm. Tiny echogenic foci noted measuring 2 mm, no evident nodules. No evident hyperemia on color Doppler imaging. Isthmus: The isthmus measures 8 mm in AP dimension. US/US thyroid [id number] IMPRESSION: Irregular enlarged, heterogeneous, and lobulated appearance of the thyroid suggestive of a nonspecific thyroiditis, less likely Graves disease.
--- NOTE | 2021-06-27 13:37 | PM.PN ---
Subjective Subjective: Interval history: No acute events overnight. Hospital course appreciated. Today morning examination on rest patient's heart rate in the low 90s but on waking up going up to 110 bpm, atrial fibrillation. Denies any nausea vomiting, headache, dizziness. Saturating well on room air. Does state that he has possibly history of sleep apnea. He states there have been times in people of told him that he has quit breathing while sleeping. Denies any nausea vomiting, headache. Vitals/I&O/Wt Last Vital Signs Temp 97.8 F 06/27/21 10:00 Pulse 95 06/27/21 12:15 Resp 25 H 06/27/21 12:15 BP 112/91 06/27/21 12:15 Pulse Ox 93 06/27/21 12:15 06/26/21 06/27/21 06/27/21 22:59 06:59 14:59 Intake Total 733.608 / 1240.795 615.087 / 1855.882 814 / 814 Output Total 300 / 300 Balance 733.608 / 1240.795 615.087 / 1855.882 514 / 514 Weight last 48 hrs Weight 108.545 kg Weight 104.326 kg Physical Exam Narrative: EXAM NARRATIVE: General: No acute distress, AO x3 HEENT: PERRLA, pupils bilaterally equal and reactive Chest: Normal vesicular breath sounds, no added sounds, equal good air entry bilaterally CVS: S1-S2 irregularly irregular, no murmurs, no tachycardia, no gallops, no rubs Abdomen: Soft, nontender, no organomegaly, bowel sounds present Neuro: No focal deficits, no facial deformity, AO x3, power 5/5 in all limbs Data : 06/27/21 04:56 06/27/21 04:56 A&P Assessment and plan (1) Atrial fibrillation: Increase metoprolol to 100 mg twice daily. Most likely secondary to severe hypothyroidism. Along with possible undiagnosed sleep apnea Low TSH. Check free T3, free T4. Echocardiogram results appreciated. EF 40 to 45% with mild global LV hypokinesia. Telemetry. Next needed will add Cardizem. Masood vas score: 1 patient is agreeable to start anticoagulation. Switch from Lovenox to Eliquis 5 mg twice daily. Status: Acute (2) CHF (congestive heart failure): Systolic heart failure. IV Lasix 40 mg stat. Strict input output charting, daily weights. Most likely nonischemic cardiomyopathy but patient will most likely need further work-up to rule out ischemic cardiomyopathy. Status: Acute (3) Transaminitis: Hepatitis panel negative. Most likely congestive hepatomegaly. Status: Acute (4) Hyperthyroidism: Low TSH. Severely elevated free T3 and T4. Thyroid ultrasound, TPO antibodies. For now start patient on methimazole 10 mg oral jackeline as free T 4 is more than 3 times of normal high limit. Most likely patient would need to follow-up with endocrine as an outpatient for further iodine ablation. Status: Acute Additional A&P Information Full code Jean Marie will have a DVT prophylaxis as well. Protonix for PUD prophylaxis. Cardiac diet. Transfer to CSU. Attestations Medical Necessity Statement*: Requires further hospitalization for management of atrial fibrillation rapid ventricular response, new diagnosis of severe hypothyroidism Coding Level of Care Code Acute Certified Art Therapist for Chg Fwd Diagnoses Atrial fibrillation I48.91 CHF (congestive heart failure) I50.9 Transaminitis R74.01 Hyperthyroidism E05.90
[2021-06-27] MEDS: methIMAzole 5 MG Tablet 10 MG PO (14:10)
[2021-06-27] MEDS: methIMAzole 5 MG Tablet 20 MG PO (15:37)
[2021-06-27] MEDS: metoprolol tartrate 50 mg Tablet 100 MG PO (21:11)
[2021-06-28 00:24] VITALS: BP 119/86; PULSE 99; RESP 22; O2SAT 93
[2021-06-28 04:00] VITALS: BP 145/80; PULSE 90; RESP 24; O2SAT 93
[2021-06-28 05:01] LABS: Alanine Aminotransferase 32 U/L (0-41); Albumin Level 3.1 g/dL (3.5-5.2); Alkaline Phosphatase 239 IU/L (40-130); Anion Gap 17.4 (5-19); Aspartate Amino Transferase 47 U/L (0-40); Blood Urea Nitrogen 13 mg/dL (6-20); Calcium 9.2 mg/dL (8.5-10.5); Carbon Dioxide 21 mmol/L (22-29); Chloride 104 mmol/L (98-107); Globulin 3.2 g/dL (1.3-4.6); Glomerular Filtration Rate 321.4 mL/min (90-130); Glucose 112 mg/dL (65-115); Osmolality Calculated 287 mOsm/kg (285-295); Potassium 4.4 mmol/L (3.5-5.1); Sodium 138 mmol/L (136-145); Total Bilirubin 1.6 mg/dL (0.15-1.2); Total Protein 6.3 g/dL (6.6-8.7)
--- NOTE | 2021-06-28 05:22 | PC.NURSE ---
Shift Note Frequent safety and comfort rounds continue. Orders and nursing care completed as indicated. Patient monitored for response to intervention and treatment. Education provided includes metoprolol use and dose change. Patient verbalized understanding.
[2021-06-28 05:33] VITALS: PULSE 100
[2021-06-28] MEDS: methIMAzole 5 MG Tablet 30 MG PO (08:35)
[2021-06-28] MEDS: apixaban 5 mg Tablet PO (08:36)
[2021-06-28] MEDS: metoprolol tartrate 50 mg Tablet 100 MG PO (08:36)
[2021-06-28] MEDS: potassium chloride ER 20 mEq Tablet PO (08:36)
[2021-06-28] MEDS: FUROsemide 40 mg Tablet PO (08:36)
[2021-06-28 09:07] VITALS: BP 161/96; PULSE 105; RESP 20; TEMP 36.5; O2SAT 94
--- NOTE | 2021-06-28 09:36 | PM.DCS ---
Discharge Providers Date of Admission: 06/26/21 09:37 Date of Discharge: June 28, 2021 Attending Provider at Admission: Judah Wesley MD Attending Provider at Discharge: Ba Dior MD Diagnoses at Discharge Discharge Diagnosis (1) Atrial fibrillation: Status: Acute (2) CHF (congestive heart failure): Status: Acute (3) Transaminitis: Status: Acute (4) Hyperthyroidism: Status: Acute Reason for Visit Reason for Visit: SOB, High Blood Pressure, sent from [facility] Hospital Course Hospital Course Lukas Calloway is a 45 year old male who presents to the emergency department with 1 week history of palpitations. This culminated in chest discomfort, shortness of breath, nausea for which she sought help at urgent care today and was directed to the emergency department when heart rate was noted to be elevated. He reports he has had intermittent episodes of fast heart rate in the past but no diagnosis. He does not regularly follow-up with a physician. He denies any past history of exertional chest discomfort. While in the emergency department he received Cardizem, and ultimately was placed on an esmolol drip. With this he reports all of his symptomatology has gone away with the heart rate decreased. Reports past history of Covid in 2019. He has also been vaccinated, with last immunization May 22 with Moderna. Patient was admitted to the hospital and started on esmolol drip which was later transitioned over to oral metoprolol. He tolerated treatment well. Echocardiogram was done which showed an EF of 40 to 45%, mild global LV hypokinesia blood work showed TSH is 0.01 with free T4 of more than 7.77 and free T3 of more than 21. It is believed patient's atrial fibrillation is most likely secondary to severe hyperthyroidism along with undiagnosed sleep apnea. Thyroid ultrasound was done which was concerning for a possible thyroiditis. Patient's case was discussed with outpatient senior premium auditor who suggested him to be started on methimazole 30 mg oral daily. He has been discharged in hemodynamically stable condition on oral methimazole 30 mg daily, metoprolol 75 mg twice daily, Eliquis 5 mg twice daily, lisinopril 10 mg oral daily, Lasix 40 mg oral daily with advised to follow-up with endocrinology within next 1 to 3 days and with his primary care provider within next 1 week for repeat BMP and thyroid panel. Physical Exam Narrative: EXAM NARRATIVE: General: No acute distress, AO x3 HEENT: PERRLA, pupils bilaterally equal and reactive Chest: Normal vesicular breath sounds, no added sounds, equal good air entry bilaterally CVS: S1-S2 irregularly irregular, no murmurs, no tachycardia, no gallops, no rubs Abdomen: Soft, nontender, no organomegaly, bowel sounds present Neuro: No focal deficits, no facial deformity, AO x3, power 5/5 in all limbs Discharge Data Data Completed and Pending: Completed Studies During Hospitalization Category Date Time Status XR chest 1V tamar ble [id number] Stat Exams 06/26/21 07:39 Completed CV. echo wo/w con trast [id number] Routin e Ultrasound 06/26/21 11:00 [place] [id number] Rout ine Ultrasound 06/27/21 Completed US thyroid [id number] Routine Ultrasound 06/27/21 13:30 Completed Pending at discharge Category Date Time Status Erythrocyte Sedim entation Rate Rout ine Lab 06/27/21 16:34 Received TSH Receptor Bind ing Antibody Routi ne Lab 06/27/21 16:34 Received Thyroglobulin Rou bonnie Lab 06/27/21 16:34 Received Thyroid Peroxidas e Antobodies Routi ne Lab 06/27/21 04:56 Received Labs from last 24 hours 06/28/21 06/27/21 06/27/21 04:16 04:56 04:56 ESR Sodium 138 Potassium 4.4 Chloride 104 Carbon Dioxide 21 L Anion Gap 17.4 BUN 13 Creatinine 0.3 L GFR Calculation 321.4 H Glucose 112 Estimat Average Gl ucose 131 Hemoglobin A1c 6.2 H Calculated Osmolal ity 287 Calcium 9.2 Iron TIBC % Saturation Unsat Iron Binding Total Bilirubin 1.6 H AST 47 H ALT 32 Alkaline Phosphata se 239 H C-Reactive Protein 11.0 H Total Protein 6.3 L Albumin 3.1 L Globulin 3.2 Triglycerides Cholesterol LDL Cholesterol, C alc Total VLDL Cholest jovita HDL Cholesterol Cholesterol/HDL Ra jerry Free T4 Free T3 Thyroglobulin Thyroid Peroxidase Ab TSH Rec Binding Ab 06/27/21 06/26/21 06/26/21 04:56 07:56 07:56 ESR Sodium Potassium Chloride Carbon Dioxide Anion Gap BUN Creatinine GFR Calculation Glucose Estimat Average Gl ucose Hemoglobin A1c Calculated Osmolal ity Calcium Iron 75 TIBC 204 % Saturation 36.7 Unsat Iron Binding 129 Total Bilirubin AST ALT Alkaline Phosphata se C-Reactive Protein Total Protein Albumin Globulin Triglycerides 71 Cholesterol 75 LDL Cholesterol, C alc 41 L Total VLDL Cholest jovita 14 HDL Cholesterol 20 L Cholesterol/HDL Ra jerry 3.75 Free T4 > 7.77 H Free T3 21.0 H Thyroglobulin Pending Thyroid Peroxidase Ab TSH Rec Binding Ab Pending 06/26/21 06/26/21 07:56 07:56 ESR Pending Sodium Potassium Chloride Carbon Dioxide Anion Gap BUN Creatinine GFR Calculation Glucose Estimat Average Gl ucose Hemoglobin A1c Calculated Osmolal ity Calcium Iron TIBC % Saturation Unsat Iron Binding Total Bilirubin AST ALT Alkaline Phosphata se C-Reactive Protein Total Protein Albumin Globulin Triglycerides Cholesterol LDL Cholesterol, C alc Total VLDL Cholest jovita HDL Cholesterol Cholesterol/HDL Ra jerry Free T4 Free T3 Thyroglobulin Thyroid Peroxidase Ab Pending TSH Rec Binding Ab Addt'l Data from Hospital Stay: Laboratory Results WBC 7.8 10^3/uL (4.0- 10.0) 06/27/21 04:56 RBC 4.61 10^6/uL (4.1 -5.3) 06/27/21 04:56 Hgb 12.7 g/dL (11.7-1 6.6) 06/27/21 04:56 Hct 40.3 % (42.0-52.0 ) L 06/27/21 04:56 MCV 87.4 fl (80-94) 06/27/21 04:56 MCH 27.5 pg (28.0-34. 0) L 06/27/21 04:56 MCHC 31.5 g/dL (30.0-3 6.0) 06/27/21 04:56 RDW 14.5 % (12.1-15.1 ) 06/27/21 04:56 Plt Count 139 10^3/cmm (130 -400) 06/27/21 04:56 MPV 12.2 fL (7.4-10.4 ) H 06/27/21 04:56 Neut % (Auto) 44.9 % 06/27/21 04:56 Lymph % (Auto) 37.9 % 06/27/21 04:56 [place] % (Auto) 14.0 % 06/27/21 04:56 Eos % (Auto) 2.6 % 06/27/21 04:56 Baso % (Auto) 0.3 % 06/27/21 04:56 Neut # (Auto) 3.51 10^3/uL (1.8 -7.7) 06/27/21 04:56 Lymph # (Auto) 3.0 10^3/uL (0.8- 4.8) 06/27/21 04:56 [place] # (Auto) 1.1 10^3/uL (0.2- 0.9) H 06/27/21 04:56 Eos # (Auto) 0.2 10^3/uL (0.0- 0.8) 06/27/21 04:56 Baso # (Auto) 0.0 10^3/uL (0.0- 0.1) 06/27/21 04:56 Nucleated RBC % (a uto) 0 % 06/27/21 04:56 Nucleated RBCs # 0.0 /100WBC 06/27/21 04:56 Sodium 138 mmol/L (136-1 45) 06/28/21 04:16 Potassium 4.4 mmol/L (3.5-5 .1) 06/28/21 04:16 Chloride 104 mmol/L (98-10 7) 06/28/21 04:16 Carbon Dioxide 21 mmol/L (22-29) L 06/28/21 04:16 Anion Gap 17.4 (5-19) 06/28/21 04:16 BUN 13 mg/dL (6-20) 06/28/21 04:16 Creatinine 0.3 mg/dL (0.7-1. 2) L 06/28/21 04:16 GFR Calculation 321.4 mL/min (90- 130) H 06/28/21 04:16 Glucose 112 mg/dL (65-115 ) 06/28/21 04:16 Estimat Average Gl ucose 131 06/27/21 04:56 Hemoglobin A1c 6.2 % (4.0-6.0) H 06/27/21 04:56 Calculated Osmolal ity 287 mOsm/kg (285- 295) 06/28/21 04:16 Calcium 9.2 mg/dL (8.5-10 .5) 06/28/21 04:16 Magnesium 1.9 mg/dL (1.7-2. 3) 06/26/21 07:56 Iron 75 ug/dL (59-158) 06/27/21 04:56 TIBC 204 mcg/dl 06/27/21 04:56 % Saturation 36.7 % (20-50) 06/27/21 04:56 Unsat Iron Binding 129 ug/dL (112-34 7) 06/27/21 04:56 Total Bilirubin 1.6 mg/dL (0.15-1 .2) H 06/28/21 04:16 AST 47 U/L (0-40) H 06/28/21 04:16 ALT 32 U/L (0-41) 06/28/21 04:16 Alkaline Phosphata se 239 IU/L (40-130) H 06/28/21 04:16 Troponin T Baselin e 55 ng/L (0-15) H 06/26/21 07:56 Troponin T 120 Min mohegan 47.86 ng/L (0-15) H 06/26/21 10:45 Delta Troponin T -7.14 ABS# (0-10) L 06/26/21 10:45 Troponin T Hi Sens 6Hr 43.96 ng/L (0-15) H 06/26/21 13:56 Troponin T Hi Sens 6Hr Delta -11.04 ng/L (0-12 ) L 06/26/21 13:56 C-Reactive Protein 11.0 mg/L (0.0-4. 9) H 06/27/21 04:56 NT-Pro-B Natriuret Pep 1195 pg/mL (0-125 ) H 06/26/21 07:56 Total Protein 6.3 g/dL (6.6-8.7 ) L 06/28/21 04:16 Albumin 3.1 g/dL (3.5-5.2 ) L 06/28/21 04:16 Globulin 3.2 g/dL (1.3-4.6 ) 06/28/21 04:16 Triglycerides 71 mg/dL (0-150) 06/27/21 04:56 Cholesterol 75 mg/dL (0-200) 06/27/21 04:56 LDL Cholesterol, C alc 41 mg/dL (50-129) L 06/27/21 04:56 Total VLDL Cholest jovita 14 mg/dL (0-30) 06/27/21 04:56 HDL Cholesterol 20 mg/dL (60-100) L 06/27/21 04:56 Cholesterol/HDL Ra ejrry 3.75 mg/dL (1.0-5 .00) 06/27/21 04:56 TSH 0.01 uIU/mL (0.27 -4.20) L 06/26/21 07:56 Free T4 > 7.77 ng/dL (0.8 2-1.77) H 06/27/21 04:56 Free T3 21.0 PG/ML (2.0-4 .4) H 06/27/21 04:56 Hepatitis A IgM Ab Non-reactive (No nreactive) 06/26/21 07:56 Hep Bs Antigen Non-reactive (No nreactive) 06/26/21 07:56 Hep B Core IgM Ab Non-reactive (No nreactive) 06/26/21 07:56 Hepatitis C Antibo dy Non-reactive (No nreactive) 06/26/21 07:56 Impressions Chest X-Ray 06/26/21 07:39 IMPRESSION: Findings which could be due to dependent interstitial pulmonary edema versus interstitial pneumonitis. Head/Neck Ultrasound 06/27/21 00:00 IMPRESSION: 1. Qualitatively, the thyroid vascularity appears mildly hyperemic throughout the thyroid. Similar differential considerations of a nonspecific thyroiditis or possibly grave's disease. 2. No evidence of cervical adenopathy. Thyroid Ultrasound 06/27/21 13:30 IMPRESSION: Irregular enlarged, heterogeneous, and lobulated appearance of the thyroid suggestive of a nonspecific thyroiditis, less likely Graves disease. Echocardiogram: CONCLUSIONS Technically limited quality echocardiogram because of poor ultrasonic windows. LV systolic function is mildly reduced with EF of 40 to 45%. Mild global hypokinesis is seen. Diastolic function is indeterminate because of atrial fibrillation. Valvular structures are not well-visualized however no gross abnormalities. No comparison studies are available. Vitals: Last Vital Signs Temp 97.7 F 06/28/21 09:07 Pulse 105 H 06/28/21 09:07 Resp 20 H 06/28/21 09:07 BP 161/96 06/28/21 09:07 Pulse Ox 94 06/28/21 09:07 Discharge Plan Discharge Patient Disposition: Home Condition: Stable Prescriptions: New Eliquis 5 mg Tablet 5 mg PO BID@0900,2100 30 Days Qty: 60 RF: 0 furosemide 40 mg Tablet 20 mg PO DAILY@0800 30 Days Qty: 30 RF: 0 lisinopril 10 mg Tablet 10 mg PO DAILY 30 Days Qty: 30 RF: 0 metoprolol tartrate 50 mg Tablet 100 mg PO BID@0900,2100 30 Days Qty: 120 RF: 0 methimazole 10 mg tablet 30 mg PO DAILY 30 Days Qty: 90 RF: 0 Continued ondansetron HCl [Zofran] 4 mg tablet 4 mg PO Q6H PRN (Reason: nausea and vomiting) Qty: 15 RF: 0 multivitamin Tablet 1 tab PO DAILY RF: 0 magnesium Tablet 1 tab PO DAILY RF: 0 potassium gluconate 595 mg (99 mg) Tablet 99 mg PO DAILY RF: 0 Vitamin D3 1 cap PO DAILY RF: 0 cetirizine 10 mg Tablet 10 mg PO DAILY RF: 0 Discontinued Vitamin C 1,000 mg Tablet 1,000 mg PO DAILY RF: 0 zinc 1 cap PO DAILY RF: 0 Discharge Orders: Discharge Order (Routine); Ordered 06/28/21 Ordered By: Ba Dior Referrals: Mariah Roman MD [Physician] - 1-3 days (Thyroid panel ) Discharge Diet: Cardiac Discharge Activity: Resume usual activity Patient Instructions: Opioid Safety Activity Restrictions/Additional Instructions: Please make sure you do not exceed more than 2 g of salt daily. Do not exceed more than 5000 cc of fluid daily Your new medications which are as follows. Metoprolol 100 mg twice daily. Will help controlling your heart rate Eliquis 5 mg twice daily. Is a blood thinner Methimazole 30 mg daily. For hypothyroidism Lisinopril 10 mg oral daily. For blood pressure Lasix 20 mg oral daily. Which is a water pill. Please follow-up with endocrinology within next 1 to 3 days for repeat thyroid panel and further work-up for hypothyroidism. Please follow-up with your primary care provider within next 1 week for repeat CMP and thyroid panel. Discharge Attestations Time Spent in Discharge Care*: greater than 30 min Specific Discharge Activities: educating patient, discussing with pcp/other providers, discussing with immigration case worker/social workers/dc planners, documenting/other paperwork and evaluating patient/reviewing data Status at Discharge: Cognitive status at discharge: cognitively intact, Behavioral status at discharge: cooperative, Functional status at discharge: independent ambulation Overall status at discharge: patient is progressing back to baseline Quality Metrics Clinical Quality Measures During this hospital stay, did patient experience: None Coding Level of Care Code Acute Chg FW HI note Diagnoses Atrial fibrillation I48.91 CHF (congestive heart failure) I50.9 Transaminitis R74.01 Hyperthyroidism E05.90
[2021-06-28] MEDS: lisinopril 10 mg Tablet PO (09:54)
[2021-06-28 11:12] VITALS: BP 149/111; PULSE 95; RESP 18; O2SAT 93
--- NOTE | 2021-06-28 11:25 | PC.NURSE ---
Jean Marie marquez provided to pt.
--- NOTE | 2021-06-28 11:54 | PC.CHAP ---
Pastoral Care Encounter/Spiritual Assessment Type of Contact [] Declined manager concrete visit [] Patient/Family/Request visit [] Outpatient visit [XX] Follow-up visit [] Physician referral [] Code/Alert [] Routine visit [] Staff referral [] Actively dying [] Patient sleeping [] Family support [] [] Out of room [] Palliative care [] [] Receiving care in room [] Pre-surgical visit [] Trauma [] Long length of stay [] ICU visit [] Other: Relational/Emotional Strength [XX] Patient feels connected with others/family/visitors/staff [] Distress [] Loneliness/isolation [] Abandonment Spirituality of Patient [XX] Person of [place] [XX] Attends Catholic of their [place] [XX] Believes in Prayer [] Reads Bible or Synagogue materials [] There are Spiritual issues to be addressed Street Light Servicer Interventions [] Prayer [XX] Active listening [XX] Non-anxious presence [] Spiritual/emotional support [] Crisis/trauma care [] Spiritual counseling [] Bereavement support [] Provided bereavement packet [] Provided Bible/devotional materials [] Provided toy/stuffed animal, coloring book to patient or family member [] Provided Communion [] Anointing/[place] [] Salvation [XX] Completed spiritual assessment [] Other: Impact on Illness or Injury [] Angry [] Fearful [] Anxious [] Often cries [] Exhaustion [] Unable to work [] Unable to attend shinto [] Unable to walk/stand [] Unable to read [] Unable to drive [] Unable to eat/drink [] Unable to sleep [] Unable to be with family [] Patient intubated [] Other: Summary: Pt had been admitted to ICU but was now on CSU. Pt has strong support system at home and with a roman catholic family. Pt's member of congress was able to visit on Tuesday. Pt to be discharged today. Pt declined prayer from manager concrete. Time spent with patient: 10 mins
[2021-06-28 12:00] VITALS: BP 149/111; PULSE 95; RESP 18; O2SAT 93
--- NOTE | 2021-06-28 13:48 | PC.NURSE ---
Discharge Note Patient discharged to home via wheelchair accompanied by . Discharge instructions reviewed with patient and/or resources representative such as Afib, CHF stoplight, Hyperthyroidism and to call Moisture Conditioner Operator as discussed w/ his doctor. Mobile pharmacy medications and/or prescriptions provided. Educated pt on new meds actions,dosing, timing and possible side effects. Pt teaches back. Belongings/home medications returned. Discharge packet provided to pt.
[2021-06-29 15:27] LABS: Thyroid Peroxidase Antobodies 127 IU/mL (<9)
--- NOTE | 2021-06-30 14:52 | PC.SOCIAL ---
discharge follow up call made, spoke with patient. patient received all new medications from the pharmacy and he is taking as directed. Patient is maintaining the 2gram salt diet.Patient is trying to not exceed more than 5000 ml of fluid daily. Patient has follow up appointment scheduled with Dr. Roman, writer editor will schedule appointment with pcp, patient doesn't have pcp, schedule patient to see Dr. Damon. Patient denies questions or concerns.
[2021-07-03 22:08] LABS: TSH Receptor Binding Antibody 18.91 IU/L (< OR = 2.00)
[2021-07-07 10:08] LABS: Thyroglobulin Level 348.8 ng/mL
== END 2021-06-28 12:30 | disposition home or self-care (01) | DRG 308 ==
LOC: ER 13:16 → ER IP 13:57 → ICU 14:50 → CSU 06-27 12:30
PROVIDERS: Admitting Provider Internal Medicine; Emergency Provider Family Medicine; Visit Provider Student in an Organized Health Care Education/Training Program
DX: I48.91 Unspecified atrial fibrillation (principal); I50.21 Acute systolic (congestive) heart failure; I25.5 Ischemic cardiomyopathy; R16.0 Hepatomegaly, not elsewhere classified; Z86.16 Personal history of COVID-19; G47.30 Sleep apnea, unspecified; E05.90 Thyrotoxicosis, unspecified without thyrotoxic crisis or storm; E06.9 Thyroiditis, unspecified
CPT/HCPCS: 36415; 71045; 76536; 80053; 80061; 80074; 83036; 83516; 83540; 83550; 83735; 83880; 84432; 84439; 84443; 84481; 84484; 85025; 85651; 86140; 86376; 86800; 93005; 96365; 96366; 96372; 96375; 96376; 99291; 99292; C8929; J1160; J1650; J1940; J2405; J3490; Q9956

== ENCOUNTER → 2021-07-01 08:36 | Outpatient (BNVA) | payer OTHER, SELFPAY | PROVIDERS: Visit Provider Internal Medicine | DX: E05.90 Thyrotoxicosis, unspecified without thyrotoxic crisis or storm (principal); E06.3 Autoimmune thyroiditis; R74.01 Elevation of levels of liver transaminase levels; I48.91 Unspecified atrial fibrillation; I50.9 Heart failure, unspecified; E05.00 Thyrotoxicosis with diffuse goiter without thyrotoxic crisis or storm; R06.02 Shortness of breath; R00.2 Palpitations | CPT/HCPCS: 99204 ==

== ENCOUNTER 2021-07-01 09:48 | Outpatient (CLI) | payer OTHER, SELFPAY ==
[2021-07-01 10:28] LABS: Basophils % 0.2 %; Eosinophils # 0.2 10^3/uL (0.0-0.8); Eosinophils % 2.9 %; Hematocrit 40.9 % (42.0-52.0); Hemoglobin 13.4 g/dL (11.7-16.6); Lymphocytes # 1.8 10^3/uL (0.8-4.8); Lymphocytes % 27.4 %; Mean Corpuscular HGB Conc 32.8 g/dL (30.0-36.0); Mean Corpuscular Hemoglobin 27.7 pg (28.0-34.0); Mean Corpuscular Volume 84.7 fl (80-94); Mean Platelet Volume 12.5 fL (7.4-10.4); Monocytes # 0.8 10^3/uL (0.2-0.9); Monocytes % 12.7 %; Neutrophils % 56.6 %; Nucleated Red Blood Cells % 0 %; Platelet Count 149 10^3/cmm (130-400); Red Blood Count 4.83 10^6/uL (4.1-5.3); Red Cell Distribution Width 14.5 % (12.1-15.1); White Blood Count 6.5 10^3/uL (4.0-10.0)
[2021-07-01 11:06] LABS: Alanine Aminotransferase 34 U/L (0-41); Albumin Level 3.6 g/dL (3.5-5.2); Alkaline Phosphatase 230 IU/L (40-130); Anion Gap 13.1 (5-19); Aspartate Amino Transferase 42 U/L (0-40); Blood Urea Nitrogen 10 mg/dL (6-20); Calcium 9.4 mg/dL (8.5-10.5); Carbon Dioxide 24 mmol/L (22-29); Chloride 104 mmol/L (98-107); Free T4 Free Thyroxine 4.36 ng/dL (0.82-1.77); Globulin 3.3 g/dL (1.3-4.6); Glomerular Filtration Rate 321.4 mL/min (90-130); Glucose 124 mg/dL (65-115); Osmolality Calculated 284 mOsm/kg (285-295); Potassium 4.1 mmol/L (3.5-5.1); Sodium 137 mmol/L (136-145); Thyroid Stimulating Hormone 0.01 uIU/mL (0.27-4.20); Total Bilirubin 1.7 mg/dL (0.15-1.2); Total Protein 6.9 g/dL (6.6-8.7)
[2021-07-02 08:02] LABS: T3 Total 313 ng/dL (76-181)
== END 2021-07-01 09:49 | disposition home or self-care (01) ==
LOC: LAB 09:52
PROVIDERS: PCP Family Medicine; Visit Provider Internal Medicine
DX: E05.90 Thyrotoxicosis, unspecified without thyrotoxic crisis or storm (principal); R74.01 Elevation of levels of liver transaminase levels
CPT/HCPCS: 36415; 80053; 84439; 84443; 84480; 85025

== ENCOUNTER 2021-07-16 16:42 | Outpatient (CLI) | payer OTHER, SELFPAY ==
[2021-07-16 22:59] LABS: Free T4 Free Thyroxine 1.74 ng/dL (0.82-1.77)
== END 2021-07-16 16:43 | disposition home or self-care (01) ==
LOC: LAB 16:45
PROVIDERS: PCP Family Medicine; Visit Provider Internal Medicine
DX: E05.90 Thyrotoxicosis, unspecified without thyrotoxic crisis or storm (principal)
CPT/HCPCS: 36415; 84439; 84480

== ENCOUNTER 2021-07-22 16:30 | Outpatient (CLI) | payer OTHER, SELFPAY ==
[2021-07-24 10:43] LABS: T3 Total 120 ng/dL (76-181)
== END 2021-07-22 16:31 | disposition home or self-care (01) ==
LOC: LAB 16:32
PROVIDERS: PCP Family Medicine; Visit Provider Internal Medicine
DX: E05.00 Thyrotoxicosis with diffuse goiter without thyrotoxic crisis or storm (principal); E05.90 Thyrotoxicosis, unspecified without thyrotoxic crisis or storm; E06.3 Autoimmune thyroiditis
CPT/HCPCS: 84480

== ENCOUNTER → 2021-09-04 13:26 | Outpatient (BNVA) | payer OTHER, SELFPAY | PROVIDERS: PCP Family Medicine; Visit Provider Internal Medicine | DX: E05.00 Thyrotoxicosis with diffuse goiter without thyrotoxic crisis or storm (principal); E05.90 Thyrotoxicosis, unspecified without thyrotoxic crisis or storm; E06.3 Autoimmune thyroiditis | CPT/HCPCS: 84439; 84443; 84480 ==

== ENCOUNTER → 2021-09-07 08:35 | Outpatient (BNVA) | payer OTHER, SELFPAY | PROVIDERS: PCP Family Medicine; Visit Provider Internal Medicine | DX: E05.90 Thyrotoxicosis, unspecified without thyrotoxic crisis or storm (principal); E06.3 Autoimmune thyroiditis; R74.01 Elevation of levels of liver transaminase levels; I48.91 Unspecified atrial fibrillation; I50.9 Heart failure, unspecified | CPT/HCPCS: 99214 ==

== ENCOUNTER 2021-09-14 15:29 | Outpatient (CLI) | payer OTHER, SELFPAY ==
[2021-09-14 16:38] LABS: Free T4 Free Thyroxine 1.51 ng/dL (0.82-1.77)
== END 2021-09-14 15:30 | disposition home or self-care (01) ==
LOC: LAB 15:33
PROVIDERS: PCP Family Medicine; Visit Provider Internal Medicine
DX: E05.00 Thyrotoxicosis with diffuse goiter without thyrotoxic crisis or storm (principal); E06.3 Autoimmune thyroiditis; E05.90 Thyrotoxicosis, unspecified without thyrotoxic crisis or storm
CPT/HCPCS: 84439

== ENCOUNTER 2021-10-19 09:08 | Outpatient (CLI) | payer OTHER, SELFPAY ==
[2021-10-19 09:59] LABS: Thyroid Stimulating Hormone 0.01 uIU/mL (0.27-4.20)
[2021-10-21 08:40] LABS: Free T4 Free Thyroxine 4.15 ng/dL (0.82-1.77)
== END 2021-10-19 09:09 | disposition home or self-care (01) ==
PROVIDERS: PCP Family Medicine; Visit Provider Internal Medicine
DX: E05.00 Thyrotoxicosis with diffuse goiter without thyrotoxic crisis or storm (principal); E06.3 Autoimmune thyroiditis
CPT/HCPCS: 36415; 84439; 84443

== ENCOUNTER 2021-10-30 16:35 | Outpatient (CLI) | payer OTHER, SELFPAY ==
[2021-10-30 19:52] LABS: Free T4 Free Thyroxine 2.56 ng/dL (0.82-1.77); Thyroid Stimulating Hormone 0.01 uIU/mL (0.27-4.20)
[2021-11-02 12:03] LABS: T3 Total 180 ng/dL (76-181)
== END 2021-10-30 16:36 | disposition home or self-care (01) ==
LOC: LAB 16:37
PROVIDERS: PCP Family Medicine; Visit Provider Internal Medicine
DX: E05.00 Thyrotoxicosis with diffuse goiter without thyrotoxic crisis or storm (principal); E06.3 Autoimmune thyroiditis
CPT/HCPCS: 36415; 84439; 84443; 84480

== ENCOUNTER 2021-12-02 13:36 | Outpatient (CLI) | payer OTHER, SELFPAY ==
[2021-12-02 14:45] LABS: Free T4 Free Thyroxine 0.65 ng/dL (0.82-1.77); Thyroid Stimulating Hormone 1.47 uIU/mL (0.27-4.20)
[2021-12-03 05:19] LABS: T3 Total 56 ng/dL (76-181)
== END 2021-12-02 13:37 | disposition home or self-care (01) ==
LOC: LAB 13:41
PROVIDERS: PCP Family Medicine; Visit Provider Internal Medicine
DX: E05.00 Thyrotoxicosis with diffuse goiter without thyrotoxic crisis or storm (principal); E06.3 Autoimmune thyroiditis
CPT/HCPCS: 36415; 84439; 84443; 84480

== ENCOUNTER 2021-12-21 15:30 | Outpatient (CLI) | payer OTHER, SELFPAY ==
[2021-12-21 21:31] LABS: Free T4 Free Thyroxine 1.54 ng/dL (0.82-1.77); Thyroid Stimulating Hormone 0.05 uIU/mL (0.27-4.20)
[2021-12-22 07:23] LABS: T3 Total 134 ng/dL (76-181)
== END 2021-12-21 15:31 | disposition home or self-care (01) ==
LOC: LAB 15:39
PROVIDERS: PCP Family Medicine; Visit Provider Internal Medicine
DX: E05.00 Thyrotoxicosis with diffuse goiter without thyrotoxic crisis or storm (principal); E06.3 Autoimmune thyroiditis
CPT/HCPCS: 84439; 84443; 84480

== ENCOUNTER 2022-01-22 13:23 | Outpatient (CLI) | payer OTHER, SELFPAY ==
[2022-01-22 14:28] LABS: Free T4 Free Thyroxine 1.68 ng/dL (0.82-1.77); Thyroid Stimulating Hormone 0.01 uIU/mL (0.27-4.20)
[2022-01-23 07:44] LABS: T3 Total 139 ng/dL (76-181)
== END 2022-01-22 13:24 | disposition home or self-care (01) ==
PROVIDERS: PCP Family Medicine; Visit Provider Internal Medicine
DX: E05.00 Thyrotoxicosis with diffuse goiter without thyrotoxic crisis or storm (principal); E05.90 Thyrotoxicosis, unspecified without thyrotoxic crisis or storm; E06.3 Autoimmune thyroiditis
CPT/HCPCS: 36415; 84439; 84443; 84480

== ENCOUNTER 2022-03-26 14:30 | Outpatient (CLI) | payer OTHER, SELFPAY ==
[2022-03-26 15:28] LABS: Free T4 Free Thyroxine 1.85 ng/dL (0.82-1.77); Thyroid Stimulating Hormone 0.01 uIU/mL (0.27-4.20)
[2022-03-27 09:59] LABS: T3 Total 152 ng/dL (76-181)
== END 2022-03-26 14:31 | disposition home or self-care (01) ==
LOC: LAB 14:32
PROVIDERS: PCP Family Medicine; Visit Provider Internal Medicine
DX: E05.00 Thyrotoxicosis with diffuse goiter without thyrotoxic crisis or storm (principal); E05.90 Thyrotoxicosis, unspecified without thyrotoxic crisis or storm; E06.3 Autoimmune thyroiditis
CPT/HCPCS: 36415; 84439; 84443; 84480

== ENCOUNTER 2022-05-31 07:22 | Outpatient (CLI) | payer OTHER, SELFPAY ==
[2022-05-31 07:56] LABS: Basophils % 0.6 %; Eosinophils # 0.3 10^3/uL (0.0-0.8); Hematocrit 45.6 % (42.0-52.0); Hemoglobin 15.6 g/dL (11.7-16.6); Lymphocytes # 1.9 10^3/uL (0.8-4.8); Lymphocytes % 30.5 %; Mean Corpuscular HGB Conc 34.2 g/dL (30.0-36.0); Mean Corpuscular Hemoglobin 29.4 pg (28.0-34.0); Mean Corpuscular Volume 85.9 fl (80-94); Mean Platelet Volume 11.2 fL (7.4-10.4); Monocytes # 0.5 10^3/uL (0.2-0.9); Monocytes % 7.4 %; Neutrophils # 3.56 10^3/uL (1.8-7.7); Neutrophils % 57.2 %; Nucleated Red Blood Cells % 0 %; Platelet Count 207 10^3/cmm (130-400); Red Blood Count 5.31 10^6/uL (4.1-5.3); Red Cell Distribution Width 12.3 % (12.1-15.1); White Blood Count 6.2 10^3/uL (4.0-10.0)
[2022-05-31 08:24] LABS: Alanine Aminotransferase 30 U/L (0-41); Albumin Level 4.2 g/dL (3.5-5.2); Alkaline Phosphatase 138 U/L (40-130); Anion Gap 13.9 (5-19); Aspartate Amino Transferase 24 U/L (0-40); Blood Urea Nitrogen 12 mg/dL (6-20); Calcium 9.4 mg/dL (8.5-10.5); Carbon Dioxide 25 mmol/L (22-29); Chloride 103 mmol/L (98-107); Free T4 Free Thyroxine 1.41 ng/dL (0.82-1.77); Glomerular Filtration Rate 143.8 mL/min (90-130); Glucose 158 mg/dL (65-115); Osmolality Calculated 289 mOsm/kg (285-295); Potassium 3.9 mmol/L (3.5-5.1); Sodium 138 mmol/L (136-145); Thyroid Stimulating Hormone 0.01 uIU/mL (0.27-4.20); Total Bilirubin 1.1 mg/dL (0.15-1.2); Total Protein 7.2 g/dL (6.6-8.7)
[2022-06-01 12:52] LABS: T3 Total 135 ng/dL (76-181)
== END 2022-05-31 07:23 | disposition home or self-care (01) ==
LOC: LAB 07:24
PROVIDERS: PCP Family Medicine; Visit Provider Internal Medicine
DX: E05.00 Thyrotoxicosis with diffuse goiter without thyrotoxic crisis or storm (principal); E06.3 Autoimmune thyroiditis; R00.1 Bradycardia, unspecified
CPT/HCPCS: 36415; 80053; 84439; 84443; 84480; 85025

== ENCOUNTER 2022-08-19 07:41 | Outpatient (CLI) | payer OTHER, SELFPAY ==
[2022-08-19 08:38] LABS: Free T4 Free Thyroxine 1.27 ng/dL (0.82-1.77); Thyroid Stimulating Hormone 0.03 uIU/mL (0.27-4.20)
[2022-08-21 01:08] LABS: T3 Total 129 ng/dL (76-181)
== END 2022-08-19 07:42 | disposition home or self-care (01) ==
PROVIDERS: PCP Family Medicine; Visit Provider Internal Medicine
DX: E05.90 Thyrotoxicosis, unspecified without thyrotoxic crisis or storm (principal); E06.3 Autoimmune thyroiditis
CPT/HCPCS: 36415; 84439; 84443; 84480

== ENCOUNTER 2022-10-20 15:29 | Outpatient (CLI) | payer OTHER, SELFPAY ==
[2022-10-20 20:46] LABS: Alanine Aminotransferase 35 U/L (0-41); Albumin Level 4.6 g/dL (3.5-5.2); Alkaline Phosphatase 85 U/L (40-130); Anion Gap 17.7 (5-19); Aspartate Amino Transferase 29 U/L (0-40); Blood Urea Nitrogen 14 mg/dL (6-20); Calcium 9.6 mg/dL (8.5-10.5); Carbon Dioxide 23 mmol/L (22-29); Chloride 100 mmol/L (98-107); Globulin 3.4 g/dL (1.3-4.6); Glomerular Filtration Rate 143.2 mL/min (90-130); Glucose 137 mg/dL (65-115); Osmolality Calculated 287 mOsm/kg (285-295); Potassium 3.7 mmol/L (3.5-5.1); Sodium 137 mmol/L (136-145); Thyroid Stimulating Hormone 0.15 uIU/mL (0.27-4.20); Total Bilirubin 1.5 mg/dL (0.15-1.2)
[2022-10-21 10:50] LABS: T3 Total 132 ng/dL (76-181)
== END 2022-10-20 15:30 | disposition home or self-care (01) ==
PROVIDERS: PCP Family Medicine; Visit Provider Internal Medicine
DX: R74.01 Elevation of levels of liver transaminase levels (principal); E05.00 Thyrotoxicosis with diffuse goiter without thyrotoxic crisis or storm
CPT/HCPCS: 36415; 80053; 84439; 84443; 84480

== ENCOUNTER 2023-01-10 07:14 | Outpatient (CLI) | payer OTHER, SELFPAY ==
[2023-01-10 08:12] LABS: Free T4 Free Thyroxine 1.16 ng/dL (0.82-1.77); Thyroid Stimulating Hormone 0.26 uIU/mL (0.27-4.20)
[2023-01-11 09:50] LABS: T3 Total 123 ng/dL (76-181)
== END 2023-01-10 07:15 | disposition home or self-care (01) ==
PROVIDERS: PCP Family Medicine; Visit Provider Internal Medicine
DX: E05.00 Thyrotoxicosis with diffuse goiter without thyrotoxic crisis or storm (principal); E06.3 Autoimmune thyroiditis; I48.0 Paroxysmal atrial fibrillation; I50.9 Heart failure, unspecified; R74.01 Elevation of levels of liver transaminase levels
CPT/HCPCS: 36415; 84439; 84443; 84480

== ENCOUNTER 2023-03-14 07:31 | Outpatient (CLI) | payer OTHER, SELFPAY ==
[2023-03-14 08:23] LABS: Free T4 Free Thyroxine 1.18 ng/dL (0.82-1.77); Thyroid Stimulating Hormone 1.11 uIU/mL (0.27-4.20)
[2023-03-15 10:29] LABS: T3 Total 106 ng/dL (76-181)
== END 2023-03-14 07:32 | disposition home or self-care (01) ==
PROVIDERS: PCP Family Medicine; Visit Provider Internal Medicine
DX: E05.90 Thyrotoxicosis, unspecified without thyrotoxic crisis or storm (principal); I48.91 Unspecified atrial fibrillation; R74.01 Elevation of levels of liver transaminase levels; I50.9 Heart failure, unspecified; E06.3 Autoimmune thyroiditis; E05.00 Thyrotoxicosis with diffuse goiter without thyrotoxic crisis or storm
CPT/HCPCS: 36415; 84439; 84443; 84480

== ENCOUNTER 2023-05-31 07:16 | Outpatient (CLI) | payer OTHER, SELFPAY ==
[2023-05-31 08:06] LABS: Thyroid Stimulating Hormone 0.07 uIU/mL (0.27-4.20)
[2023-06-01 08:54] LABS: T3 Total 137 ng/dL (76-181)
== END 2023-05-31 07:17 | disposition home or self-care (01) ==
PROVIDERS: PCP Family Medicine; Visit Provider Internal Medicine
DX: E05.90 Thyrotoxicosis, unspecified without thyrotoxic crisis or storm (principal); E06.3 Autoimmune thyroiditis
CPT/HCPCS: 36415; 84439; 84443; 84480

== ENCOUNTER 2023-10-12 07:34 | Outpatient (CLI) | payer OTHER, SELFPAY ==
[2023-10-12 08:29] LABS: Free T4 Free Thyroxine 1.06 ng/dL (0.82-1.77); Thyroid Stimulating Hormone 6.84 uIU/mL (0.27-4.20)
[2023-10-13 13:49] LABS: T3 Total 100 ng/dL (76-181)
== END 2023-10-12 07:35 | disposition home or self-care (01) ==
LOC: LAB 07:34
PROVIDERS: PCP Family Medicine; Visit Provider Internal Medicine
DX: E05.90 Thyrotoxicosis, unspecified without thyrotoxic crisis or storm (principal)
CPT/HCPCS: 36415; 84439; 84443; 84480

== ENCOUNTER 2023-11-03 07:29 | Outpatient (CLI) | payer OTHER, SELFPAY ==
[2023-11-03 08:32] LABS: Free T4 Free Thyroxine 1.63 ng/dL (0.82-1.77); Thyroid Stimulating Hormone 0.13 uIU/mL (0.27-4.20)
[2023-11-04 11:59] LABS: T3 Total 131 ng/dL (76-181)
== END 2023-11-03 07:30 | disposition home or self-care (01) ==
LOC: LAB 07:29
PROVIDERS: PCP Family Medicine; Visit Provider Internal Medicine
DX: E05.00 Thyrotoxicosis with diffuse goiter without thyrotoxic crisis or storm (principal); E06.3 Autoimmune thyroiditis
CPT/HCPCS: 36415; 84439; 84443; 84480

== ENCOUNTER 2023-12-16 10:09 | Emergency (ER) | payer OTHER, SELFPAY ==
[2023-12-16 10:34] VITALS: BP 146/96; PULSE 106; RESP 15; TEMP 36.9; O2SAT 96
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
[2023-12-16] MEDS: tetanus-dipt-pertussis 0.5 mL SDV IM (11:14)
== END 2023-12-16 11:30 | disposition home or self-care (01) ==
PROVIDERS: Emergency Provider Family Medicine; PCP Family Medicine
DX: S00.81XA Abrasion of other part of head, initial encounter (principal); Y04.2XXA Assault by strike against or bumped into by another person, initial encounter; Y92.240 Courthouse as the place of occurrence of the external cause; Y99.0 Civilian activity done for income or pay; I50.9 Heart failure, unspecified; Z23 Encounter for immunization
CPT/HCPCS: 90471; 90715; 99283

== ENCOUNTER → 2024-01-11 07:26 | Outpatient (BNVA) | payer OTHER, SELFPAY | PROVIDERS: PCP Family Medicine; Visit Provider Internal Medicine | DX: E05.90 Thyrotoxicosis, unspecified without thyrotoxic crisis or storm (principal); E06.3 Autoimmune thyroiditis; E05.00 Thyrotoxicosis with diffuse goiter without thyrotoxic crisis or storm | CPT/HCPCS: 36415; 84439; 84443; 84480 ==

== ENCOUNTER 2024-07-03 07:15 | Outpatient (CLI) | payer OTHER, SELFPAY ==
[2024-07-03 08:59] LABS: Thyroid Stimulating Hormone 2.41 uIU/mL (0.27-4.20)
[2024-07-04 08:00] LABS: T3 Total 102 ng/dL (76-181)
== END 2024-07-03 07:16 | disposition home or self-care (01) ==
LOC: LAB 07:17
PROVIDERS: PCP Family Medicine; Visit Provider Internal Medicine
DX: E05.90 Thyrotoxicosis, unspecified without thyrotoxic crisis or storm (principal); E06.3 Autoimmune thyroiditis; E05.00 Thyrotoxicosis with diffuse goiter without thyrotoxic crisis or storm
CPT/HCPCS: 36415; 84439; 84443; 84480

== ENCOUNTER → 2025-03-27 14:53 | Outpatient (BNVA) | payer OTHER, SELFPAY | PROVIDERS: PCP Family Medicine; Visit Provider Family Medicine | DX: I10 Essential (primary) hypertension (principal) | CPT/HCPCS: 80053; 80061; 83036; 84439; 84443; 85025 ==

== ENCOUNTER → 2025-06-28 07:28 | Outpatient (BNVA) | payer OTHER, SELFPAY | PROVIDERS: PCP Family Medicine; Visit Provider Family Medicine | DX: E11.9 Type 2 diabetes mellitus without complications (principal) | CPT/HCPCS: 80048; 83036 ==